=== PATIENT | female | born 1995 | race Caucasian/White ===

== ENCOUNTER 2019-01-09 12:26 | Emergency (ER) | payer MEDICAID, SELFPAY ==
[2019-01-09] VITALS (10 sets, daily range): BP systolic 117–148; BP diastolic 61–97; PULSE 84–143; RESP 15–28; TEMP 37.2; O2SAT 18–100; BMI 31.7
[2019-01-09] MEDS: Ziprasidone IM 20 MG/ML VIAL IM (12:57)
--- NOTE | 2019-01-09 13:06 | ED.DCSUM_ITS ---
- ER Visit Summary Date of Service: 01/09/19 Chief Complaint: Abnormal behavior and hallucinations History of Present Illness: The patient is a 23 F who presents with abnormal behavior that has been getting worse since yesterday. Mother thinks the patient is having auditory and visual hallucinations as well. Mother states patient has been talking to mirrors like she is talking to another person. Mother states the patient has not been able to have a coherent thought. Mother states patient is usually pretty talkative but has been more so since yesterday. Mother states the patient has not been making any sense. Patient does have a history of bipolar disorder. Physical Examination: Vital signs are stable except for a tachycardia of 143. Patient is afebrile. Patient is in no acute distress. Patient is having flight of ideas. Patient is not answering questions appropriately. Patient has poor insight and judgment. Patient feels like she came control other people's thoughts. Heart was regular and tachycardic. Lungs are clear and equal bilateral. Abdomen is soft and nontender. Cranial nerves II through XII are intact. There are no focal motor or sensory deficits. Oral mucosa is pink and moist. Test Results: CBC, metabolic profile, urinalysis, urine hCG, urine tox screen, and serum alcohol level were obtained. Potassium was slightly low at 3.2. Creatinine was 1.12. Urine tox was positive for methamphetamines. The remaining labs were essentially within normal limits. Emergency Department Course and Treatment: Patient was given Geodon and Ativan here in the emergency. Crisis was in to evaluate the patient and will attempt to admit the patient to a psychiatric facility. Patient was becoming more agitated. Patient was given another dose of Ativan. Disposition: Transfer to psychiatric facility Impression: Acute psychosis This note was generated with iExplore dictation software. It may contain incorrect words, spelling, and punctuation that were not noted in review of the chart prior to signing ED Disposition - Plan for ED Patient: Disposition: Psychiatric Hospital or Unit Diagnosis: Acute psychosis Referrals: Fany Mcginnis NP-C [Primary Care Provider] -
[2019-01-09] MEDS: LORazepam 2 MG/ML Syringe IM ×2 (13:17→15:33)
--- NOTE | 2019-01-09 13:30 | ED.RN ---
CRISIS COUNSELOR AT BEDSIDE.
[2019-01-09 14:12] LABS: Absolute Lymphocyte Count 1.86 X10^3/ul (0.83-4.51); Absolute Neutrophil Count 4.6 X10^3/uL (2.0-7.7); Basophil# 0.03 X10^3/uL; Basophil% 0.4 % (0-1); Eosinophil# 0.06 X10^3/uL; Eosinophils% 0.9 % (0-5); Hematocrit 34.1 % (37-47); Hemoglobin 10.4 g/dl (12.0-15.0); Lymphocyte # 1.86 X10^3/ul (4.0); Lymphocyte % 26.6 % (19-41); Mean Corp Hgb Conc 30.5 g/gl (32-36); Mean Corpuscular Hgb 21.9 pg (27.0-32.0); Mean Corpuscular Volume 71.8 fL (81-99); Monocyte% 5.7 % (0-10); Neutrophil # 4.63 X10^3/uL (2.7-7.7); Neutrophil % 66.3 % (47-70); Platelet Count 365 K/mm3 (150-450); RBC Distribution Width CV 15.9 % (11.6-14.6); RBC Distribution Width SD 41.3 fl (35.1-43.9); Red Blood Count 4.75 M/mm3 (4.2-5.4)
[2019-01-09 14:18] LABS: Anion Gap 9 (5-15); BUN 12 mg/dL (7-18); BUN/Creat Ratio 10.7 RATIO (10-20); Chloride 110 mmol/L (98-107); Creatinine, Serum 1.12 mg/dL (0.55-1.02); EST Glomerular Filtration Rate 64 mL/min (>60); Est Glom Filt Rate - Afr Amer 78 mL/min (>60); Estimated Creatinine Clearance 67.46 ml/min; Glucose 86 mg/dL (74-106); POSITIVE COUNT NO; POSITIVE DIFFERENTIAL NO; POSITIVE MORPHOLOGY YES; Potassium 3.2 mmol/L (3.5-5.1); Sodium Level 142 mmol/L (136-145)
[2019-01-09 14:19] LABS: Differential Indicated SCAN CRITERIA MET
[2019-01-09 14:24] LABS: Pregnancy, Serum, hCG Quali. NEGATIVE Negative (0-9 Nonpreg)
[2019-01-09 14:56] LABS: Alcohol, Blood (Medical)-Serum < 3.0 mg/dL
[2019-01-09 15:25] LABS: Amphetamine Urine VISTA NEGATIVE (<1000 ng/mL); Barbiturate Urine VISTA NEGATIVE (< 200 ng/mL); Benzodiazepine Urine VISTA NEGATIVE (< 200 ng/mL); Cocaine Urine VISTA NEGATIVE (< 300 ng/mL); Ecstacy Urine VISTA POSITIVE (< 500 ng/mL); Methadone Urine VISTA NEGATIVE (< 300 ng/mL); PCP Urine VISTA NEGATIVE (< 25 ng/mL); THC Urine VISTA NEGATIVE (< 50 ng/mL); Vista UDS pH Range 5
[2019-01-09] MEDS: Haloperidol Lactate 5 MG/ML Vial 10 MG IM (16:38)
[2019-01-09] MEDS: DiphenhydrAMINE 50 MG/ML Syringe IM (17:21)
--- NOTE | 2019-01-09 18:22 | ED.RN ---
[facility] CALLED AND DENIED PATIENT [facility] CALLED AND DENIED PATIENT
--- NOTE | 2019-01-09 19:20 | ED.RN ---
A LADY NAME? FROM [facility] CALLED AND REQUESTED A RECENT SET OF VITALS. SHE ALSO WANTED AN EKG, MEDICATION LISTS, AND FOR THE POTASSIUM TO BE TREATED. I GAVE HER RECENT VITALS AND I TOLD HER I WOULD GET THE REST.
--- NOTE | 2019-01-09 19:25 | EKG12_ITS ---
Test Reason : MHC Blood Pressure : / mmHG Vent. Rate : 120 BPM Atrial Rate : 120 BPM P-R Int : 120 ms QRS Dur : 124 ms QT Int : 362 ms P-R-T Axes : 063 109 028 degrees QTc Int : 511 ms Sinus tachycardia Right bundle branch block Abnormal ECG Confirmed by RHIANNON HOLLIDAY, REMA ([id number]), features editor BELLE ESTRADA ([id number]) on 01/13/2019 11:28:08 AM Referred By: Myra Araujo Confirmed By:REMA JURADO MD
--- NOTE | 2019-01-09 19:45 | ED.RN ---
SISTER IS AT THE BEDSIDE AND PATIENT IS COOPERATIVE, SO I REMOVED HER LEFT WRIST AND RIGHT ANKLE LOCKED RESTRAINT.
--- NOTE | 2019-01-09 21:04 | ED.RN ---
NEW RESTRAINT ORDER SIGNED AT [address] PEREZ. PATIENT IS CURRENTLY SLEEPING. HER MOM IS IN THE WAITING ROOM. I AM GOING TO ATTEMPT TO REMOVED THE OTHER TWO RESTRAINTS. I TOLD MOM THIS AND SHE SAID PLEASE WAIT TILL I COME BACK IN THE ROOM. I ATTEMPTED TO SPEAK TO THE PATIENT TO ASK HER IF SHE WANTED FOOD OR DRINK AND SHE JUST LOOKED AT ME AND WENT BACK TO SLEEP.
--- NOTE | 2019-01-09 22:15 | ED.RN ---
PATIENT IS SLEEPING SOUNDLY SO I REMOVED THE RESTRAINTS. SHE CONTINUES TO SLEEP CURRENTLY. MOM AND I WILL ATTEMPT TO GET HER TO EAT AND DRINK WHEN SHE WAKES UP ALONG WITH GIVE HER POTASSIUM TABLET.
[2019-01-09 23:02] LABS: AST(SGOT) 15 U/L (15-37); Alanine Aminotransfer ALT/SGPT 16 U/L (13-56); Alkaline Phosphatase 58 U/L (45-117); Bilirubin, Direct 0.11 mg/dL (0.00-0.30); Globulin 3.9 g/dL (2.2-4.2); Protein, Total 7.9 g/dL (6.4-8.2)
--- NOTE | 2019-01-09 23:31 | ED.RN ---
PATIENT IS SLEEPING SOUNDLY. MOM IS AT THE BEDSIDE. PATIENT STILL DOES NOT HAVE A GOWN ON,D/T RESTRAINTS EARLIER, BUT WE WILL WORK ON THAT WHEN PATIENT WAKES.
[2019-01-10] VITALS (15 sets, daily range): BP systolic 120–152; BP diastolic 69–88; PULSE 82–127; RESP 14–23; TEMP 37.3; O2SAT 97–100
--- NOTE | 2019-01-10 02:00 | ED.RN ---
PATIENT WOKE UP AND HER MOTHER GAVE HER SOME FOOD AND A DRINK. SHE ATTEMPTED TO GIVE HER THE TWO POTASSIUM PILLS. THE PATIENT REFUSED SAYING THOSE WERE LAXATIVES AND SHE DIDN'T NEED THEM. SHE REFUSED MULTIPLE TIMES, THEN LAYED DOWN AND WENT BACK TO SLEEP. I AM GOING TO TALK TO DR. BURTON AND SEE IF WE CAN TRY LIQUID IF THEY HAVE IT.
--- NOTE | 2019-01-10 02:02 | ED.RN ---
PATIENT'S HEART RATE WENT UP IN THE 140'S AT ONE POINT AN EKG PRINT OUT WAS GIVEN TO DR. BURTON AND HE SAID IT WAS SINUS TACHYCARDIA AND LONG IT COMES BACK DOWN HE WAS OK WITH IT. THE RATE IS CURRENTLY 122.
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
--- NOTE | 2019-01-10 03:09 | ED.RN ---
DR. BURTON WAS MADE AWARE OF PATIENT REFUSING TO TAKE POTASSIUM. DR. BURTON SAID THAT SHE CAN REFUSE AND WE ARE NOT PUTTING AN IV IN FOR A POTASSIUM OF 3.2 THIS IS VERY MILD HYPOKALEMIA. HE ALSO TOLD ME TO CALL [facility] AND LET THEM KNOW THIS.
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
--- NOTE | 2019-01-10 05:06 | ED.RN ---
ARNOLDO AT [facility] SAID THAT POTASSIUM HAS TO BE TREATED PRIOR TO GETTING ACCEPTED. DR. BURTON SAID WE WILL HAVE TO PUT AN IV IN TO GIVE IT TO HER. HE ORDERED SOME SEDATION MEDICATIONS AND THEN ATTEMPT TO GET AN IV PUT IN TO GIVE HER SOME IV POTASSIUM.
[2019-01-10] MEDS: Haloperidol Lactate 5 MG/ML Vial IM (05:19)
[2019-01-10] MEDS: Midazolam 2 MG/2 ML Syringe IM (05:19)
--- NOTE | 2019-01-10 05:20 | ED.RN ---
PATIENT IS STILL NOT COOPERATIVE EVEN IN RESTRAINTS. SHE REFUSES TO HOLD ANY EXTREMITY STILL FOR A BLOOD PRESSURE. THE BP CUFF IS ON HER LEG AND SHE MOVES IT THE WHOLE TIME SAYING THAT IT IS GOING TO KILL HER.
[2019-01-10] MEDS: Potassium Chloride 10mEq/100mL 10 MEQ/100 ML IV.SOLN. 100 MEQ IV BOLUS (05:59)
[2019-01-10] MEDS: 0.9% Normal Saline 1,000 ML 1000 ML IV (05:59)
--- NOTE | 2019-01-10 06:00 | ED.RN ---
THIS NURSE GOT AN IV OF A 22 IN HER RIGHT FOREARM. PATIENT'S RESTRAINED ARM HAD TO HELD STILL BY ANN FILM TOUCH UP INSPECTOR AND AN ARM BOARD WAS PUT ON WHICH THE PATIENT BENT WHEN WE WERE APPLYING. IV POTASSIUM AND IV NORMAL SALINE BOLUS WAS STARTED. PATIENT IS MOANINGI ABOUT RESTRAINTS ON HANDS D/T TIGHTNESS TO MAINTAIN IV. HER HANDS ARE NICE AND WARM CURRENTLY AND I AM STAYING NEAR ROOM TO KEEP CHECKING ON HER.
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
--- NOTE | 2019-01-10 08:10 | ED.RN ---
REMOVED RIGHT LEG RESTRAINT. PT COOPERATIVE INTIALLY. MOTHER WITH PT REINFORCING INSTRUCTION. PT REPOSITIONED AND RESTING IN BED AT THIS TIME. NO DISTRESS NOTED. SAFETY MAINTAINED.
--- NOTE | 2019-01-10 09:12 | ED.RN ---
PT HISS AGGRESSIVELY AT MOTHER. REFUSING BEDPAI OT PULL UP. DR ORDER TO REMAIN IN RESTAINTS FOR SAFETY. PUT SQUEEZING STAFFS HAND AND STATES SEE HOW STRONG I AM. AM I HURTING YOU YET PULLS AT RESTRAINTS.
--- NOTE | 2019-01-10 10:07 | ED.RN ---
PER RODGER WITH CRISIS; SHE CALLED [facility]; THE [facility] IS ADMITTING A PT AT THIS TIME; SHE WILL KEEP TRYING TO GET AHOLD OF THEM
--- NOTE | 2019-01-10 10:30 | ED.RN ---
PT REFUSING MEDICATIONS AT THIS TIME.
--- NOTE | 2019-01-10 11:45 | NURSING ---
RODGER WITH CRISIS CALLED TO SEE IF WE HAD HEARD FROM [facility]; SHE IS GOING TO REACH OUT TO THE FACILITY AND SEE IF THEY HAVE AN UPDATE
--- NOTE | 2019-01-10 11:46 | ED.RN ---
PT RESTING QUIETLY IN BED. NO DISTRESS NOTD. MOTHER AT BEDSIDE. NOT DISTURBED AT THIS TIME.
--- NOTE | 2019-01-10 11:46 | ED.RN ---
HOME CONCERTA ORDERED TO BE GIVEN. SENT TP PHARMACY FOR VERIFICATION.
--- NOTE | 2019-01-10 11:56 | ED.RN ---
RODGER WITH CRISIS CALLED BACK SHE SPOKE WITH [facility] WHO HAS ACCEPTED THE PT. WE ARE WAITING ON A BED AT THE FACILITY AND THEY ARE HOPING IT WILL BE AVAILABLE TODAY
--- NOTE | 2019-01-10 11:57 | ED.RN ---
PT MOM REPORTS DOES NOT GIVEN CONCERTAL PAST 1000 IN MORNING. PT AND MOTHER REFUSING THIS AM DOSE.
--- NOTE | 2019-01-10 12:00 | ED.RN ---
REVIEWED HOME MEDICATION LIST WITH MOM AND PILL BOTTLES. CORRECTIONS MADE
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
== END 2019-01-10 14:46 ==
PROVIDERS: Emergency Medicine; Emergency Provider Emergency Medicine; Family Provider Registered Nurse; PCP Registered Nurse; Referring Provider Registered Nurse
DX: F23 Brief psychotic disorder (principal); F31.9 Bipolar disorder, unspecified; Z79.899 Other long term (current) drug therapy
CPT/HCPCS: 36415; 80048; 80076; 80307; 80320; 84703; 85025; 93005; 96365; 96372; 99285; J7030; A4216; G0480; J3486